=== PATIENT | female | born 1945 | race Caucasian/White ===

== ENCOUNTER 2017-01-12 21:19 | Inpatient (IN) | payer MEDICARE, OTHER ==
[~2017-01-12] VITALS: Ht 162.6 cm; Wt 40.4 kg
[2017-01-12] MEDS ORDERED: ALENDRONATE SOD70 MG PO (23:14)
[2017-01-12] MEDS ORDERED: ASPIR 8181 MG PO (23:14)
[2017-01-12 23:15] LABS: HEMOGLOBIN 7.2 gm/dl (12.3-15.3)
[2017-01-12] MEDS ORDERED: ALL DAY ALLERGY10 MG PO (23:16)
[2017-01-12] MEDS ORDERED: CIPRO500 MG PO (23:17)
[2017-01-12] MEDS ORDERED: CITALOPRAM HBR10 MG PO (23:17)
[2017-01-12] MEDS ORDERED: VOLTAREN EC 5050 MG PO (23:18)
[2017-01-12] MEDS ORDERED: PREVACID 30 MG30 MG PO (23:18)
[2017-01-12] MEDS ORDERED: COZAAR 25MG TAB25 MG PO (23:19)
[2017-01-12] MEDS ORDERED: ZESTRIL40 MG PO (23:19)
[2017-01-12] MEDS ORDERED: LOPRESSOR 25 MG25 MG PO (23:21)
[2017-01-12] MEDS ORDERED: NEXIUM40 MG PO (23:22)
[2017-01-12] MEDS ORDERED: SIMVASTATIN40 MG PO (23:23)
[2017-01-12] MEDS ORDERED: PREVPAC PATIEN1 EACH PO (23:23)
[2017-01-12] MEDS ORDERED: TOPAMAX50 MG PO (23:25)
[2017-01-12] MEDS ORDERED: SYMBICORT 160-1 INHA INH (23:25)
[2017-01-12] MEDS ORDERED: VENTOLIN/PROVE0.5 ML INH (23:26)
[2017-01-12] MEDS ORDERED: ZOFRAN4 MG PO (23:27)
[2017-01-12] MEDS ORDERED: BUSPAR 5MG TABLE5 MG PO (23:28)
[2017-01-13 08:10] LABS: HEMOGLOBIN 9.9 gm/dl (12.3-15.3)
[2017-01-13 15:03] LABS: HEMOGLOBIN 9.5 gm/dl (12.3-15.3)
[2017-01-13 20:04] LABS: HEMOGLOBIN 8.6 gm/dl (12.3-15.3)
[2017-01-14 03:33] LABS: HEMOGLOBIN 8.8 gm/dl (12.3-15.3); RED BLOOD COUNT 3.03 M/UL (4.00-5.10); WHITE BLOOD COUNT 3.8 K/UL (4.5-11.0)
[2017-01-14 12:03] LABS: HEMOGLOBIN 8.6 gm/dl (12.3-15.3); RED BLOOD COUNT 2.82 M/UL (4.00-5.10); WHITE BLOOD COUNT 3.9 K/UL (4.5-11.0)
[2017-01-15 03:52] LABS: HEMOGLOBIN 7.9 gm/dl (12.3-15.3); RED BLOOD COUNT 2.74 M/UL (4.00-5.10); WHITE BLOOD COUNT 3.7 K/UL (4.5-11.0)
[2017-01-15 13:39] LABS: HEMOGLOBIN 8.9 gm/dl (12.3-15.3)
[2017-01-15] MEDS ORDERED: THERAGRAN M TAB1 EA PO (14:06)
[2017-01-15] MEDS ORDERED: TYLENOL 325MG325 MG PO (14:19)
== END 2017-01-15 15:00 | disposition home or self-care (01) | DRG 378 ==
LOC: PROG CARE 21:19 → CCU 22:38
PROVIDERS: Internal Medicine Gastroenterology; Internal Medicine Infectious Disease; ADMIT Internal Medicine
PROC: 0DJ08ZZ Inspection of Upper Intestinal Tract, Via Natural or Artificial Opening Endoscopic (ICD-10-PCS; principal; 2017-01-14 08:59)
DX: K92.1 Melena (principal); D62 Acute posthemorrhagic anemia; E87.0 Hyperosmolality and hypernatremia; I10 Essential (primary) hypertension; J44.9 Chronic obstructive pulmonary disease, unspecified; K44.9 Diaphragmatic hernia without obstruction or gangrene; I25.10 Atherosclerotic heart disease of native coronary artery without angina pectoris; I25.2 Old myocardial infarction; Z86.73 Personal history of transient ischemic attack (TIA), and cerebral infarction without residual deficits; Z87.891 Personal history of nicotine dependence
CPT/HCPCS: 36415; 80048; 80053; 80061; 82607; 82728; 82746; 83540; 83550; 83605; 83690; 84443; 85014; 85018; 85025; 85027; 85610; 85730; 86850; 86900; 86901; 86920; 93005; 94640; 94664; C9113; J2250; J2270; J2405; J3010; J3420; J7030; J7040; J7050; P9016

== ENCOUNTER 2020-12-12 13:40 | Inpatient (IN) | payer OTHER ==
[~2020-12-12] VITALS: Ht 162.6 cm; Wt 44.2 kg
[~2020-12-12 13:40] MED LIST: ALENDRONATE SOD70 MG PO; ALL DAY ALLERGY10 MG PO; ASPIR 8181 MG PO; BUSPAR 5MG TABLE5 MG PO; CIPRO500 MG PO; CITALOPRAM HBR10 MG PO; COZAAR 25MG TAB25 MG PO; LOPRESSOR 25 MG25 MG PO; PREVACID 30 MG30 MG PO; PREVPAC PATIEN1 EACH PO; SIMVASTATIN40 MG PO; SYMBICORT 160-1 INHA INH; THERAGRAN M TAB1 EA PO; TOPAMAX50 MG PO; TYLENOL 325MG325 MG PO; VENTOLIN/PROVE0.5 ML INH; VOLTAREN EC 5050 MG PO; ZESTRIL40 MG PO; ZOFRAN4 MG PO
[2020-12-13 02:56] LABS: HEMOGLOBIN 13.4 gm/dl (12.3-15.3); RED BLOOD COUNT 4.3 M/UL (4.00-5.10); WHITE BLOOD COUNT 4.5 K/UL (4.5-11.0)
[2020-12-13] MEDS ORDERED: ASPIRIN EC81 MG PO (13:07)
[2020-12-13] MEDS ORDERED: PLETAL 100 MG100 MG PO (13:07)
[2020-12-13] MEDS ORDERED: CYCLOBENZAPRINE5 MG PO (13:08)
[2020-12-13] MEDS ORDERED: FEROSUL325 MG PO (13:08)
[2020-12-13] MEDS ORDERED: HYDRALAZINE HCL10 MG PO (13:09)
[2020-12-13] MEDS ORDERED: LOPERAMIDE2 MG PO (13:16)
[2020-12-13] MEDS ORDERED: IMITREX100 MG PO (13:17)
[2020-12-13] MEDS ORDERED: DRISDOL1250 MCG PO (13:18)
[2020-12-13] MEDS ORDERED: ZESTRIL 40 MG T40 MG PO (13:19)
[2020-12-13] MEDS ORDERED: FOSAMAX70 MG PO (13:19)
[2020-12-13] MEDS ORDERED: VENTOLIN HFA 66.7 GM INH (13:19)
[2020-12-13] MEDS ORDERED: ZOCOR40 MG PO (13:20)
[2020-12-13] MEDS ORDERED: PROTONIX 40 MG40 M1 PO (23:22)
[2020-12-14 03:16] LABS: HEMOGLOBIN 11.8 gm/dl (12.3-15.3); RED BLOOD COUNT 3.84 M/UL (4.00-5.10); WHITE BLOOD COUNT 3.6 K/UL (4.5-11.0)
[2020-12-15 04:55] LABS: HEMOGLOBIN 11.4 gm/dl (12.3-15.3); RED BLOOD COUNT 3.69 M/UL (4.00-5.10); WHITE BLOOD COUNT 4.1 K/UL (4.5-11.0)
== END 2020-12-15 14:13 | disposition home or self-care (01) | DRG 390 ==
LOC: PROG CARE 16:47
PROVIDERS: Internal Medicine; ADMIT Internal Medicine
DX: K56.609 Unspecified intestinal obstruction, unspecified as to partial versus complete obstruction (principal); E78.5 Hyperlipidemia, unspecified; J44.9 Chronic obstructive pulmonary disease, unspecified; G43.909 Migraine, unspecified, not intractable, without status migrainosus; M81.0 Age-related osteoporosis without current pathological fracture; F41.9 Anxiety disorder, unspecified; Z20.822 Contact with and (suspected) exposure to COVID-19; K52.9 Noninfective gastroenteritis and colitis, unspecified; I10 Essential (primary) hypertension; Z88.6 Allergy status to analgesic agent; Z88.8 Allergy status to other drugs, medicaments and biological substances; Z86.73 Personal history of transient ischemic attack (TIA), and cerebral infarction without residual deficits
CPT/HCPCS: 36415; 80048; 80053; 80202; 82330; 83735; 84100; 85025; 94640; 94760; C9113; J1170; J2405; J2543; J3370; J7030; J7070